=== PATIENT | male | born 1995 | race Caucasian/White ===

== ENCOUNTER 2022-11-05 08:46 | Emergency (ER) | payer BC ==
[2022-11-05] MEDS ORDERED: Diphtheria,Pertussis(Acell),Tetanus Vaccine 0.5 ML Syringe IM ONE (08:55)
[2022-11-05] MEDS ORDERED: Lidocaine 2% 5 ML SDV INJECT ONE (09:05)
[2022-11-05] MEDS ORDERED: Bacitracin Oint 1 GM U/D Packet TOP ONE (09:42)
== END 2022-11-05 10:11 | disposition home or self-care (01) ==
LOC: LL.ED 08:46
DX: S61.412A Laceration without foreign body of left hand, initial encounter (principal); Z23 Encounter for immunization; W26.8XXA Contact with other sharp object(s), not elsewhere classified, initial encounter; Y92.002 Bathroom of unspecified non-institutional (private) residence as the place of occurrence of the external cause
CPT/HCPCS: 12001; 73120-LT; 90471; 90715; 99283; 99283-25; J3490